=== PATIENT | female | born 1990 | race Caucasian/White ===

== ENCOUNTER 2024-11-22 11:01 | Outpatient (CLI) | payer OTHER, SELFPAY ==
--- NOTE | 2024-11-22 11:15 | CRLHL7_ITS ---
For Patients: As a result of the Century Cures Act, medical imaging exams and procedure reports are released immediately into your electronic medical record. You may view this report before your referring provider. If you have questions, please contact your health care provider. INDICATION: survey TECHNIQUE: Conventional transabdominal two-dimensional grayscale ultrasound examination COMPARISON: None FINDINGS: There is a living fetus with gestational age of 22 weeks 4 days by LMP and 22 weeks 5 days by today`s measurements. EDC based on LMP is 03/24/2025. BPD: 5.5 cm, 22 weeks 5 days Head circumference: 20.4 cm, 22 weeks 4 days Abdominal circumference: 18.0 cm, 22 weeks 6 days Femur length: 3.8 cm, 22 weeks HC/AC: 1.13 The weight is estimated at 509 grams, the 39th percentile. The heart rate is measured at 147 beats per minute and the rhythm appears regular. The head and spine are grossly intact. No gross facial abnormality is evident. The upper lip is intact. Four cardiac chambers are demonstrated. The heart and stomach appear to be on the same side. The diaphragm is intact. Two kidneys and a bladder are demonstrated. The cord insertion is normal and three cord vessels are noted. Four extremities are demonstrated. The amniotic fluid volume is within normal limits. The placenta is anterior with a succenturiate lobe along the right posterior wall. There is no evidence of previa. The placental cord insertion is within normal limits. The cervical length is normal at 3.8 cm. IMPRESSION: 1. Living fetus with gestational age of 22 weeks 4 days by LMP and 22 weeks 5 days by today`s measurements. EDC based on LMP is 03/24/2025. 2. No anomaly evident. 3. Anterior placenta with succenturiate lobe along the right posterior wall. Dictated by Clifford Cronin MD @ 11/23/2024 2:52:57 PM (Electronically Signed)
== END 2024-11-22 11:02 | disposition home or self-care (01) ==
LOC: US 11:05
PROVIDERS: PCP Family Medicine; Visit Provider Family Medicine
DX: Z34.92 Encounter for supervision of normal pregnancy, unspecified, second trimester (principal); Z3A.22 22 weeks gestation of pregnancy
CPT/HCPCS: 76805

== ENCOUNTER 2025-01-31 07:08 | Outpatient (CLI) | payer OTHER, SELFPAY ==
--- NOTE | 2025-01-31 07:15 | CRLHL7_ITS ---
For Patients: As a result of the Cures Act, medical imaging exams and procedure reports are released immediately into your electronic medical record. You may view this report before your referring provider. If you have questions, please contact your health care provider. OBSTETRICAL ULTRASOUND ???BIOPHYSICAL PROFILE, 01/31/2025 INDICATION: AMA. CLINICAL HISTORY: EMMANUEL by LMP: 03/24/2025 Gestational Age: 32 weeks 4 days COMPARISON: Ultrasound 11/22/2024 TECHNIQUE: Real-time garcia-scale imaging of the fetus was performed transabdominal. FINDINGS: Fetus: Single Cervix: Not visualized positioning: Vertex Amniotic fluid: 6.7 cm SDP BIOPHYSICAL PROFILE: Gross body movements: 2 tone: 2 Respiratory activity: 2 Amniotic fluid SDP: 2 Total score: 8 Placenta technique: Transabdominal Placenta position: Anterior, posterior; bilobed heart rate: 143 bpm BIOMETRY: BPD: 8.4 cm, 34 weeks 0 days, 82% HC: 31 cm, 34 weeks 4 days, 67% AC: 28.5 cm, 32 weeks 3 days, 47% FL: 6.2 cm, 32 weeks 2 days, 29% FL/AC Ratio: 21.89% HC/AC ratio: 1.09 EFW: 2044 grams; 4 lbs. 8 oz. age by this ultrasound: 33 weeks 2 days EMMANUEL by this ultrasound: 03/19/2025 Percentile by EMMANUEL: 46% IMPRESSION: 1. Normal biophysical profile of 06/21. 2. Sonographic gestational age of 33 weeks 2 days and sonographic due date of 03/19/2025. Sonographic age is 5 days ahead of the clinical age. 3. Estimated weight is 46th percentile. Abdominal circumference is 47th percentile. ARMIN MAYO M.D. Diagnostic Radiologist [email or web address] Transcribed: 10:[address]/Dictated by: Armin Mayo MD @ 01/31/2025 8:44:00 AM (Electronically Signed)
== END 2025-01-31 07:09 | disposition home or self-care (01) ==
LOC: US 07:09
PROVIDERS: PCP Family Medicine; Visit Provider Family Medicine
DX: O09.513 Supervision of elderly primigravida, third trimester (principal); Z3A.32 32 weeks gestation of pregnancy
CPT/HCPCS: 76816; 76819